=== PATIENT | female | born 1940 | race Caucasian/White ===

== ENCOUNTER 2025-04-01 10:30 | Outpatient (AMB) | payer OTHER, SELFPAY ==
--- OUTSIDE RECORDS SUMMARY | 2025-01-20 10:00 | XMS_ITS ---
Author Organization [facility] Address [address] [place] [address] Care Team Providers Care Alum Plant Operator Name Role Phone Kevan JAY, Eligio Primary Care Provider Unav ailable Shanae Sharp [phone] Encounters Encounter Location Date Provider Diagnosis [address] [address] 01/20/2025 Shanae Sharp Plan Of Treatment No Information Progress Notes * Amy FARNSWORTHne FDOB:1940 (84 yo F)Acc No.[id number]:01/20/2025 Progress Note Patient: Tessa FREIRE Provider: Kavita Sharp DPM :1940 A ge:84 Y S ex:Female Date:01/20/2025 Address:[address], [facility] Pcp:Eligio Mathur MD Subjective: * Chief Complaints: [...] Sharp DPM Date: 0 01/20/2025 Generated for Katherinei ng/Faeliecerg/eTransmitting on: 1 12:29 PM EDT
[2025-04-01 11:38] VITALS: BP 110/60; PULSE 66
--- NOTE | 2025-04-01 11:38 | MHC.OFFVIS ---
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 She recently had admission at [facility] when she presented with hypoxic respiratory failure. The details are unclear but to discharge summary documented pneumonia and COPD exacerbation. She was also in AFib with RVR. At that time she had echocardiography performed which showed severe mitral valve stenosis. She subsequently has converted back to sinus rhythm. She is on metoprolol succinate. She is getting warfarin for anticoagulation. She has background of dementia and currently lives in a nursing facility. She is not active and only walks inside the facility. She does not get any significant symptoms during that. She also was found to have lung nodules which were thought to be metastatic due to previous lung cancer. She is to see a cancer specialist but has not been seeing anyone recently because she was in remission. Review of Systems Const Denies chills, Denies fatigue, Denies fever(s), Denies frequent falls, Denies weakness, Denies weight gain and Denies weight loss ENT Denies dizziness Card Denies chest pain, Denies leg edema, Denies lightheadedness, Denies palpitations, Denies dyspnea, Denies dyspnea on exertion and Denies orthopnea Resp Denies cough, Denies dyspnea and Denies dyspnea on exertion GI Denies bloating and Denies change in bowel habits Musc Denies muscle weakness, Denies numbness and Denies tingling Neuro Denies dizziness, Denies frequent falls, Denies numbness, Denies tingling and Denies weakness Endo Denies fatigue and Denies palpitations Physical Exam Vital Signs: Last Vital Signs Pulse 66 04/01/25 11:38 BP 110/60 04/01/25 11:38 GENERAL APPEARANCE: in no acute distress, pleasant. NECK: no carotid bruit, no jugular venous distention. SKIN: no suspicious lesions, warm and dry. HEART: no murmurs, regular rate and rhythm. LUNGS: clear to auscultation bilaterally. ABDOMEN: soft, nontender. EXTREMITIES: no edema. PERIPHERAL PULSES: equal. NEUROLOGIC: No gross deficits, AAO X 3 Office Procedures EKG Details: NSR with PACs, normal ECG 63458-Qybaagonposotahhw, Complete Assessment & Plan Assessment & Plan (1) PAF (paroxysmal atrial fibrillation): Code(s): I48.0 - Paroxysmal atrial fibrillation Category: Medical (2) Mitral stenosis: Code(s): I05.0 - Rheumatic mitral stenosis Category: Medical Plan 84 year female who recently had admission at [facility] with hypoxic respiratory failure. She was in AFib with RVR at that time. She has been diagnosed with mitral stenosis while she was in [facility]. She is currently on Toprol-XL and heart rate is 66 beats per minute. She also is on Namenda which causes bradycardia. She has dementia and lives a sedentary life. We will get echocardiography results some [facility]. I agree with Coumadin for anticoagulation. I have explained to the daughter and patient that she is not a candidate for any aggressive management for mitral stenosis. She also has metastatic lung nodules and has not seen a cancer specialist. The daughter is saying that they do not plan to do any chemotherapy or aggressive treatment for that and we discuss about utility of seeing an oncologist in that case. The daughter will think about it further but overall they plan not to see any oncologist. She will see us back in few months. Thank you for allowing me to participate in the care of your patient. Please feel free to contact me if you have any questions. Coding Level of Care Code New Pt Level 4 (05517) Diagnoses PAF (paroxysmal atrial fibrillation) I48.0 Mitral stenosis I05.0 CPT Codes EKG - CPT: 34033-Axebjzkqemjpluhtp, Complete ([id number])
--- OUTSIDE RECORDS SUMMARY | 2025-04-01 12:29 | XMS_ITS | Patient Health Record ---
[facility] Address [address] [place] [address] Care Team Providers Care Investment Banker Name Role Phone Kevan JAY, Eligio Primary Care Provider Unav ailable Black, Shanae Unavailable [phone] Allergies Allergen (clinical drug ingredient) Drug/Non Drug Allergy documented on EMR Reaction Allergy Type Onset Date Status Penicillin itching and swelling in inj site Drug Allergy Active Results Component Value Reference Range Notes HEMOGLOBIN A1C (GLYCOHEMOGLO BIN) Reviewed date:07/22/2024 02:26:54 PM Interpretation: Performing Lab: Notes/Report: HEMOGLOBIN A1C % (HH) 6.1 Reason For Referral No Information Medications Medication SIG (Take, Route, Frequency, Duration) Notes Start Date End Date Status DULoxetine HCl 30 MG 1 capsule Orally Tw ice a day Active Extra Depth Orthopedic Shoes (1 Pair) with Customized Heat Molded Multidensity Innersoles (3 Pair) as directed Dx: NIDDM/Polyneuropathy (E11.42), Hammertoe Foot Deformity (M20.41,M20.42), Preulcerative Skin Lesion(s) (L85.1 09/07/2021 Not-Taking Atorvastatin Calcium 80 MG 1 tablet Orally Once a day; Duration: 30 day(s) Active Lisinopril 2.5 MG 1 tablet Orally Once a day Not-Taking One Touch Delica Lancets Active Eliquis 5 MG as directed Orally Not-Taking SEROquel 25 MG two tablets Orally O nce a day Active Donepezil HCl 5 MG 1 tablet at bedtime Orally Once a day Not-Taking oxyBUTYnin Chloride 5 MG 1 tablet Orally Once a day Not-Taking Extra Depth Orthopedic Shoes (1 Pair) with Customized Heat Molded Multidensity Innersoles (3 Pair) as directed Dx: NIDDM/Polyneuropathy (E11.42), Hammertoe Foot Deformity (M20.41,M20.42), Preulcerative Skin Lesion(s) (L85.1 04/11/2023 Active Lidocaine Viscous HCl 2 % 15 ml as needed Mouth/Throat every 3 hrs Not-Nick ing Vtama 1 % 1 application [employer] ally Once a day Active Montelukast Sodium 10 MG 1 tablet Orally Once a day; Duration: 30 day(s) Active clonazePAM 0.5 MG 1 tablet at bedtime Orally Once a day Not-Taking metFORMIN HCl 1000 MG 1 tablet with a me al Orally twice a day; Duration: 30 days Active glipiZIDE ER 5 MG 1 tablet with food Orally Once a day; Duration: 30 day(s) Not-Taking Glucerna - as directed Orally Active Januvia 100 MG 1 tablet Orally Once a day; Duration: 30 day(s) Not-Nick ing Memantine HCl 10 MG 1 tablet Orally twic e daily Active Zoryve Not-Taking Wixela Inhub 250-50 MCG/DOSE 1 puff Inhalation Twice a day Active TraZODone HCl ER Act beni Otezla Not-Taking Extra Depth Orthopedic Shoes (1 Pair) with Customized Heat Molded Multidensity Innersoles (3 Pair) as directed Dx: NIDDM/Polyneuropathy (E11.42), Hammertoe Foot Deformity (M20.41,M20.42), Preulcerative Skin Lesion(s) (L85.1 07/22/2024 Active Immunizations Vaccine Route Administration Date Status Comme nts Influenza Unknown 01/06/2022 Refused Influenza Unknown 03/29/2023 Administered Social History Tobacco Use: Social History Observation Description Date Details (start date - stop date) Never Smoker NA - NA Tobacco use other than smoking: Question Answer Notes Are you an other tobacco user? No Tobacco Control (Standard) Question Answer Notes Tobacco use: Nonsmoker Additional Findings: Tobacco non-user Current no nsmoker AUDIT-C (Standard) Question Answer Notes Did you have a drink containing alcohol in the p ast year? No Points 0 Interpretation Negative Problems Problem Type SNOMED Code ICD Code Onset Dates Problem Status W/U Status Risk Notes Problem Polyneuropathy due to type 2 diabetes mellitus (526885727) Type 2 diabetes mellitus with diabetic polyneuropathy (E11.42) Active confirmed Vital Signs Blood pressure diastolic 80 mm Hg 10/21/2024 Height 5ft 7in in 10/21/2024 Blood pressure systolic 120 mm Hg 10/21/2024 Weight 146 lbs 10/21/2024 BMI 22.86 kg/m2 10/21/2024 Procedures Procedure Date Ordered Date Performed Result Body Sit e 80983-HKRI SKIN LESION 04/22/2024 N/A 08331-PKGP NAIL(S) 04/22/2024 N/A 14180-DDRQ SKIN LESION 07/22/2024 N/A 14613-PTTL NAIL(S) 07/22/2024 N/A 61712-IETO SKIN LESIONS, 2 TO 4 10/21/2024 N/A 74421-GIMV NAIL(S) 10/21/2024 N/A Encounters Encounter Location Date Provider Diagnosis [address] [address] 04/22/2024 Shanae Sharp Type 2 diabetes mellitus with diabetic polyneuropathy E11.[address] [address] 07/22/2024 Shanae Black Type 2 diabetes mellitus with diabetic polyneuropathy E11.42 ; Other hammer toe(s) (acquired), right foot M20.41 and Other hammer toe(s) (acquired), left foot M20.[address] [address] 10/21/2024 Shanae Black Type 2 diabetes mellitus with diabetic polyneuropathy E11.[facility] [address] 01/15/2025 Shanae Black Assessments Encounter Date Diagnosis (ICD Code) Assessment Notes Treatment Notes Treatment Clinical Notes Section Notes 04/22/2024 Type 2 diabetes mellitus with diabetic polyneuropathy (ICD-10 - E11.42) 07/22/2024 Type 2 diabetes mellitus with diabetic polyneuropathy (ICD-10 - E11.42) 10/21/2024 Type 2 diabetes mellitus with diabetic polyneuropathy (ICD-10 - E11.42) 07/22/2024 Other hammer toe(s) (acquired), right foot (ICD-10 - M20.41) Patient Educated with: DIABETIC FOOT CARE INSTRUCTIONS. pdf (DIABETIC FOOT CARE INSTRUCTIONS. pdf) 07/22/2024 Other hammer toe(s) (acquired), left foot (ICD-10 - M20.42) 10/21/2024 Other Plan Of Treatment Pending Test Test Name Order Date 51180-AARU SKIN LESIONS, 2 TO 4 10/22/19 89614-PFOF SKIN LESION 07/22/2024 86520-XTQD SKIN LESION 09/07/2021 03702-QCCM SKIN LESION 01/06/2022 84608-DLWT SKIN LESION 10/11/2022 11302-RWMM SKIN LESION 04/11/2023 75597-RAMU SKIN LESION 07/17/2023 07004-VBSW SKIN LESION 10/23/2023 73781-YJYY SKIN LESION 01/22/2024 91834-DBUY SKIN LESION 04/22/2024 08223-HYFB NAIL(S) 04/22/2024 24157-SNKE NAIL(S) 01/22/2024 88463-JMIS NAIL(S) 10/23/2023 36768-JIRE NAIL(S) 07/17/2023 27924-HIDD NAIL(S) 04/11/2023 30676-TDUG NAIL(S) 10/11/2022 65735-LAZC NAIL(S) 01/06/2022 64064-VDEL NAIL(S) 09/07/2021 95090-LUOV NAIL(S) 07/22/2024 47650-UHQO NAIL(S) 10/21/2024 Insurance Providers Payer Name Payer Address Payer Phone Subscriber Number Group Number Insured Name Patient Relationship to Insured Coverage Start Date Coverage End Date [facility] [employer] Claims [address] [place] [id number] Tessa Childress Self - patient is the insured Medical (General) History Medical History History ICD Code Anxiety Arthritis Back,Hip,and Knee pain Cancer Cataracts Dementia Depression Diabetic Chicken pox High blood pressure Lung disease Measles Mumps Hallux valgus (acquired), left foot M20. 12 Hallux valgus (acquired), right foot M20 .11 Other hammer toe(s) (acquired), right fo ot M20.41 Other hammer toe(s) (acquired), left meliton t M20.42 Surgical History Surgery Date(Month/Year) cataract surgery 2018 lung surgery 2009 sling, at bladder neck 2009 gall bladder appendectomy tonsillectomy colonoscopy 08/10/20 vocal cords arthroscopic knee surgery Hospitalization History Reason Date(Month/Year) [facility] dementia 11/2021 [facility]- blood clot left left 06/2021 [facility]- covid, high bp 07/02/21
--- OUTSIDE RECORDS SUMMARY | 2025-04-01 12:29 | XMS_ITS | Encounter Summary ---
Author Organization [facility] Address [address] [place] [address] Encounters * CPT with Emir Dotson at [facility] on 2025-01-01 { reasonForRequest : fall , patientReports : Weakness with fall,able to move all extremities , denies :[ Falls with head strike and LOC ,"Falls from a standing position, no LOC, patient is amnestic to the event , Falls withisolated injury and deformity noted to limb , Falls with inability to move post fall , Cool extremities after fall or injury ], chiefComplaints : Falls ,&q uot;pmh : Hypertension, COPD/Asthma, Dementia (e.g., Alzheimer's Disease), Diabetes Mellitus Type 2 , allergies : Penicillins , otherAllergies :null, painAssessment : , visitOutcome : , additionalComments": 84 y.o female complains of Falls\nPatient fell around 7:30pm tonight. Daughter saw it on ca karla that she was moving items in her room and she lost her balance and slid down the wall. \nDaughter states she did not hit her head and did not lose consciousness. \ndaughters boyfriend picked herup off the floor. \nShe states patient denies any pain and is able to bear weight on her lower extremities. Patient states shes not hurt but daughter would like her checked out by Instead. \nreviewedred flags. \nI provided information on the mobile health provider response time and advised the patient and/or caregiver to monitor reported signs and symptoms. I discussed the warning signs of when to seek emergency care. } Dispatched to the call address for the elderly female who fell approx 1 hour prior to call. Pts daughter advises Pt has dementia but is acting to her normal self. She advises she saw the Pt fall in her room from the video feed. Both deny head strike or LOC. Pt denies any pain, diff breathing, n/v/d, vision changes or dizziness. Pt is not taking blood thinners. Daughter was able to play back the video. Pt lost her balance and fell back against the wall then slow slid her self down to the floor. Family was able to assist her back up. Pt denies limited motion and is able to bare weight. Pt was found laying in bed sleeping but easily arousable, CAOx2 (baseline), airway open and patent,breathing non labored, able to speak in full sentences, - JVD, -HEENT, skin PWD with good turgor, mucous membranes pink and moist, abd soft non tender/distended, pupils PERRL, -spinal step off/tenderness, -DCAPBTLS, +CMSx4, Pt with full rom of all extremities, afebrile, lungs CTA. Fall. Pt was assessed. [facility] consulted. Red flags discussed. ALL times are approx. IV_(FLUIDS_AND/OR_MEDICATION), MEDICATION_IM, EKG, GLUCOSE, ORTHOSTATIC_VITAL_SIGNS Written by Emir Dotson on 2025-01-01
--- OUTSIDE RECORDS SUMMARY | 2025-04-01 12:29 | XMS_ITS | Continuity of Care Document ---
Author Name Emir Dotson Address [address] [place] [address] Organization Unknown Address [address] [place] [address] Medications No known medications Problems No known problems
== END 2025-04-01 12:14 | disposition home or self-care (01) ==
LOC: HO.HCS 10:31
PROVIDERS: PCP Internal Medicine; Visit Provider Internal Medicine Cardiovascular Disease
DX: I48.0 Paroxysmal atrial fibrillation (principal); I05.0 Rheumatic mitral stenosis
CPT/HCPCS: 93010; 99204

== ENCOUNTER → 2025-04-01 10:30 | Outpatient (BNVA) | payer OTHER, SELFPAY | PROVIDERS: PCP Internal Medicine; Visit Provider Internal Medicine Cardiovascular Disease | DX: I48.0 Paroxysmal atrial fibrillation (principal); I05.0 Rheumatic mitral stenosis | CPT/HCPCS: 93005; 99202 ==

== ENCOUNTER 2025-05-27 14:30 | Outpatient (AMB) | payer OTHER, SELFPAY ==
--- OUTSIDE RECORDS SUMMARY | 2025-01-20 09:00 | XMS_ITS ---
Author Organization [facility] Address [address] [place] [address] Care Team Providers Care Health Care Aide Name Role Phone Kevan JYA, Eligio Primary Care Provider Unav ailable Shanae Sharp [phone] Encounters Encounter Location Date Provider Diagnosis [address] [address] 01/20/2025 Shanae Sharp Plan Of Treatment No Information Progress Notes * Amy FARNSWORTHne FDOB:1940 (84 yo F)Acc No.[id number]:01/20/2025 Progress Note Patient: Tessa FREIRE Provider: Kavita Sharp DPM :1940 A ge:84 Y S ex:Female Date:01/20/2025 Address:[address], [facility] Pcp:Eligio Mathur MD Subjective: * Chief Complaints: * * Medical History: Objective: * Vitals: Assessment: Plan: * Treatment: * Images: * The named appointment provid er may or may not be the originator of this progress note, and it is not deemed complete until electronically signed by the appointment provider. Sign off status: Pending * Provider: Kavita Sharp DPM Date: 0 01/20/2025 Generated for Ravi penaloza/Nadege/eTransmitting on: 1 07/28/2024 10:45 PM EST
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
--- OUTSIDE RECORDS SUMMARY | 2025-05-27 22:46 | XMS_ITS | Patient Health Record ---
[facility] Nory abigail Boris Address [address] [place] [address] Care Team Providers Care Algorithm Developer Name Role Phone Kevan JAY, Eligio Primary Care Provider Unav ailable Black, Shanae Unavailable [phone] Allergies Allergen (clinical drug ingredient) Drug/Non Drug [...] Not-Nick ing Vtama 1 % 1 application Instrument Setter ally Once a day Active Montelukast Sodium [...] Polyneuropathy due to type 2 diabetes mellitus (723686458) Type 2 diabetes mellitus with diabetic polyneuropathy (E11.42) Active confirmed Vital Signs Blood pressure diastolic 80 mm Hg 10/21/2024 Height 5ft 7in in 10/21/2024 Blood pressure systolic 120 mm Hg 10/21/2024 Weight 146 lbs 10/21/2024 BMI 22.86 kg/m2 10/21/2024 Procedures Procedure Date Ordered Date Performed Result Body Sit e 98546-JOEC SKIN LESION 07/22/2024 N/A 82198-NCBB NAIL(S) 07/22/2024 N/A 43188-WAHY SKIN LESIONS, 2 TO 4 10/21/2024 N/A 10376-QNBF NAIL(S) 10/21/2024 N/A Encounters Encounter Location Date Provider [facility] [address] 07/22/2024 Shanae Black Type 2 diabetes mellitus with diabetic polyneuropathy E11.42 ; Other hammer toe(s) (acquired), right foot M20.41 and Other hammer toe(s) (acquired), left foot M20.42 [facility] [address] 10/21/2024 Shanae Sharp Type 2 diabetes mellitus with diabetic polyneuropathy E11.42 [facility] [address] [place] [address] 01/15/2025 Shanae Black Assessments Encounter Date Diagnosis (ICD Code) Assessment Notes Treatment Notes Treatment Clinical Notes Section Notes 07/22/2024 Type 2 diabetes mellitus with diabetic [...] Treatment Pending Test Test Name Order Date 45532-JYBF SKIN LESIONS, 2 TO 4 10/22/19 12758-LMOE SKIN LESION 07/22/2024 47757-WZYI SKIN LESION 09/07/2021 20213-VOTM SKIN LESION 01/06/2022 83620-UXEM SKIN LESION 10/11/2022 21054-VOKS SKIN LESION 04/11/2023 08401-NDPQ SKIN LESION 07/17/2023 54083-RAIY SKIN LESION 10/23/2023 19412-GISC SKIN LESION 01/22/2024 52136-WWQO SKIN LESION 04/22/2024 63724-OVBQ NAIL(S) 04/22/2024 18563-CZIG NAIL(S) 01/22/2024 44465-YVVJ NAIL(S) 10/23/2023 37904-PYOC NAIL(S) 07/17/2023 57507-OEXM NAIL(S) 04/11/2023 34751-UBMP NAIL(S) 10/11/2022 76189-QMEH NAIL(S) 01/06/2022 16172-VKLI NAIL(S) 09/07/2021 23407-VXLT NAIL(S) 07/22/2024 69120-APHP NAIL(S) 10/21/2024 Insurance Providers Payer Name Payer Address Payer Phone Subscriber Number Group Number Insured Name Patient Relationship to Insured Coverage Start Date Coverage End Date [facility] [employer] Claims [address] [place] [id number] Tessa Childress Self - patient is the [...]
== END 2025-05-27 15:19 | disposition home or self-care (01) ==
LOC: HO.HSM 14:31
PROVIDERS: PCP Internal Medicine; Visit Provider Registered Nurse
DX: G30.9 Alzheimer's disease, unspecified (principal); F02.83 Dementia in other diseases classified elsewhere, unspecified severity, with mood disturbance
CPT/HCPCS: 99215

== ENCOUNTER → 2025-05-27 14:30 | Outpatient (BNVA) | payer OTHER, SELFPAY | PROVIDERS: PCP Internal Medicine; Visit Provider Registered Nurse | DX: G30.9 Alzheimer's disease, unspecified (principal); F02.83 Dementia in other diseases classified elsewhere, unspecified severity, with mood disturbance; Z79.899 Other long term (current) drug therapy | CPT/HCPCS: 99212 ==